=== PATIENT | female | born 1990 | race African-American/Black ===

== ENCOUNTER 2016-07-26 00:27 | Emergency (ER) | payer MEDICAID ==
[~2016-07-26] VITALS: Ht 167.6 cm; Wt 50.0 kg
[2016-07-26] MEDS ORDERED: IBUPROFEN 800MG TABLET PO ONE (01:00)
[2016-07-26 02:16] VITALS: BP 106/58
== END 2016-07-26 02:20 | disposition home or self-care (01) ==
LOC: ER 00:31
DX: S63.501A Unspecified sprain of right wrist, initial encounter (principal); W03.XXXA Other fall on same level due to collision with another person, initial encounter; Y93.89 Activity, other specified; Y99.9 Unspecified external cause status; Y92.89 Other specified places as the place of occurrence of the external cause
CPT/HCPCS: 73110; 73130; 99284